=== PATIENT | female | born 1980 | race American Indian/Alaskan Native ===

== ENCOUNTER 2017-05-14 13:14 | Emergency (ER) | payer SELFPAY ==
[2017-05-14 13:29] VITALS: BP 109/62
--- NOTE | 2017-05-14 14:12 | XRay Report ---
CHEST 2 VIEWS INDICATION: Pain. COMPARISON: 09/11/2011. FINDINGS: PA and lateral chest radiographs demonstrate normal cardiomediastinal silhouette. Clear lungs. Slight thoracic levocurvature. CONCLUSION: No acute disease in the chest, stable. Thank you for the opportunity to participate in this patient's care.
[2017-05-14 14:27] LABS: Hematocrit 41.9 % (30.3-42.9); Hemoglobin 14.1 gm/dl (10.1-14.3); Mean Corpuscular HGB Conc 34 % (30-34); Mean Corpuscular Hemoglobin 32 pg (28-32); Mean Corpuscular Volume 94 fl (79-97); Platelet Count 167 K/mm3 (140-440); Red Blood Count 4.45 M/mm3 (3.65-5.03); Red Cell Distribution Width 13.2 % (13.2-15.2)
[2017-05-14 14:45] LABS: Blood Urea Nitrogen 10 mg/dL (7-17)
[2017-05-14 14:46] LABS: BUN/Creatinine Ratio 20; Calcium 9.4 mg/dL (8.4-10.2); Hemolysis Index 25
== END 2017-05-14 20:18 | disposition left against medical advice (07) ==
LOC: ED 13:14
DX: Z53.21 Procedure and treatment not carried out due to patient leaving prior to being seen by health care provider (principal)
CPT/HCPCS: 36415; 71046; 80048; 82962; 85027; 93005; 93010